=== PATIENT | female | born 1995 | race Hispanic/Latino ===

== ENCOUNTER 2023-07-12 12:28 | Emergency (ER) | payer BC ==
[~2023-07-12] VITALS: Ht 165.1 cm; Wt 99.8 kg
[2023-07-12 12:57] VITALS: BP 122/69; PULSE 108; RESP 16
[2023-07-12] MEDS ORDERED: AMOX500T2 PO (13:18)
== END 2023-07-12 14:03 | disposition home or self-care (01) ==
LOC: EDH 12:28
DX: H66.91 Otitis media, unspecified, right ear (principal)